=== PATIENT | female | born 1995 | race American Indian/Alaskan Native ===

== ENCOUNTER 2018-04-06 14:11 | Emergency (ER) | payer OTHER ==
--- NOTE | 2018-04-06 15:26 | Emergency Department Report ---
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 For the last few days she has mild Left earach. +nasal congestion recently, from a cold. She denies fever. She denies any trauma to the ear. She is not using any Q-tips. ED Review of Systems ROS: Stated complaint: EARACHE/HEADACHE Other details as noted in HPI Constitutional: denies: fever, malaise Eyes: denies: eye pain, eye discharge, vision change ENT: ear pain. denies: throat pain Respiratory: denies: SOB with exertion, wheezing Cardiovascular: denies: chest pain ED Past Medical Hx - Past Medical History Previous Medical History?: No - Surgical History Past Surgical History?: No - Social History Smoking Status: Never Smoker Substance Use Type: None - Medications Home Medications: Home Medications Medication Instructions Recorded Confirmed Last Taken Type Fluticasone [Flonase] 1 spray NS QDAY 14 Days #1 bottle 04/06/18 Unknown Rx Loratadine 10 mg PO DAILY 14 Days #14 capsule 04/06/18 Unknown Rx predniSONE [Prednisone] 50 mg PO DAILY 3 Days #3 tablet 04/06/18 Unknown Rx Minor Respiratory Exam - Exam General: Vital signs noted. No distress. Alert and acting appropriately. HEENT: Yes Moist Mucous Membranes, No Pharyngeal Erythema, No Pharyngeal Exudates, No Rhinorrhea, No Conjuctival Injection Ear: Left EAC Pain (serous fluid effusion), Neither TM Bulge, Neither TM Erythema Neck: Yes Supple, No Adenopathy Lungs: Yes Good Air Exchange, No Wheezes, No Ronchi, No Stridor, No Cough, No Labored Respirations, No Retractions, No Use of Accessory Muscles, No Other Abnormal Lung Sounds Heart: Yes Regular, No Murmur Abdomen: Yes Normal Bowel Sounds, No Tenderness, No Peritoneal Signs Skin: No Rash, No Edema Neurologic: Alert and oriented, no deficits. Musculoskeletal: Unremarkable. ED Course Vital Signs 04/06/18 14:16 Temperature 98.0 F Pulse Rate 86 Blood Pressure 121/79 O2 Sat by Pulse 98 Oximetry ED Medical Decision Making - Medical Decision Making Serous effusion, left ear ache, caused by eustachian tube dysfunction, recent nasal congestion and rhinorrhea. Described prednisone Flonase and loratadine. Critical care attestation.: If time is entered above; I have spent that time in minutes in the direct care of this critically ill patient, excluding procedure time. ED Disposition Clinical Impression: Left ear pain, Eustachian tube dysfunction Disposition: TO HOME OR SELFCARE Is pt being admited?: No Does the pt Need Aspirin: No Condition: Stable Instructions: Earache (ED) Prescriptions: Fluticasone [Flonase] 1 spray NS QDAY 14 Days #1 bottle Loratadine 10 mg PO DAILY 14 Days #14 capsule predniSONE [Prednisone] 50 mg PO DAILY 3 Days #3 tablet Referrals: [facility] [Outside] - 3-5 Days
== END 2018-04-06 15:36 | disposition home or self-care (01) ==
LOC: ED 14:11
DX: H69.82 Other specified disorders of Eustachian tube, left ear (principal)
CPT/HCPCS: 99282

== ENCOUNTER 2020-09-05 14:04 | Emergency (ER) | payer OTHER ==
[2020-09-05 15:24] LABS: Alanine Aminotransferase 8 units/L (7-56); Albumin 4.6 g/dL (3.9-5); Blood Urea Nitrogen 7 mg/dL (7-17); Calcium 9.3 mg/dL (8.4-10.2); Hemolysis Index 5
[2020-09-05 15:27] LABS: BUN/Creatinine Ratio 12
--- NOTE | 2020-09-05 15:33 | Emergency Department Report ---
Blank Doc - Documentation Documentation: 24-year-old female that presents with abdominal pain, nausea vomiting and head ache. Patient stated she started her menstrual cycle today. 1- This initial assessment/diagnostic orders/clinical plan/ treatment(s) is/are subject to change based on pt's health status, clinical progression and re- assessment by fellow clinical providers in the ED. Further treatment and workup at subsequent clinical provers discretion. Patient/guardians urged not to elope from ED as their condition may be serious if not clinically assessed and managed. 2-labs 3-UA
[2020-09-05 15:37] LABS: Basophils # (Auto) 0.1 K/mm3 (0.0-0.1); Basophils % (Auto) 0.8 % (0.0-1.8); Eosinophils # (Auto) 0.4 K/mm3 (0.0-0.4); Eosinophils % (Auto) 5.8 % (0.0-4.3); Hemoglobin 12.1 gm/dl (10.1-14.3); Lymphocytes # (Auto) 2.5 K/mm3 (1.2-5.4); Lymphocytes % (Auto) 36.4 % (13.4-35.0); Mean Corpuscular HGB Conc 34 % (30-34); Mean Corpuscular Volume 91 fl (79-97); Monocytes # (Auto) 0.7 K/mm3 (0.0-0.8); Monocytes % (Auto) 9.6 % (0.0-7.3); Platelet Count 202 K/mm3 (140-440); Red Blood Count 3.96 M/mm3 (3.65-5.03); Red Cell Distribution Width 14.1 % (13.2-15.2)
[2020-09-05 17:26] LABS: Bacteria,Urine 1+ /HPF (Negative); Bilirubin,Urine NEG (Negative); Blood,Urine NEG (Negative); Color,Urine Yellow (Yellow); Protein,Urine <15 mg/dL mg/dL (Negative); Urobilinogen,Urine < 2.0 mg/dL (<2.0); WBC,Urine < 1.0 /HPF (0.0-6.0)
== END 2020-09-05 19:35 | disposition left against medical advice (07) ==
LOC: ED 14:04
DX: R11.2 Nausea with vomiting, unspecified (principal); R10.9 Unspecified abdominal pain; R51.9 Headache, unspecified; Z53.21 Procedure and treatment not carried out due to patient leaving prior to being seen by health care provider
CPT/HCPCS: 36415; 80053; 81001; 83690; 84703; 85025

== ENCOUNTER 2021-05-10 10:01 | Inpatient (IN) | payer MEDICAID ==
[2021-05-10] MEDS ORDERED: ONDANSETRON 4 MG/2 ML INJ IV PRN (12:40)
[2021-05-10] MEDS ORDERED: ACETAMINOPHEN 325 MG TAB PO PRN (12:40)
[2021-05-10] MEDS ORDERED: SODIUM CHLORIDE NASAL SPRAY 44ML NS PRN (12:40)
[2021-05-10] MEDS ORDERED: diphenhydrAMINE 25 MG CAP PO PRN (12:40)
[2021-05-10] MEDS ORDERED: SIMETHICONE 80 MG CHEW TAB PO PRN (12:40)
[2021-05-10] MEDS ORDERED: DOCUSATE SODIUM 100 MG CAP PO PRN (12:40)
--- NOTE | 2021-05-10 12:48 | History and Physical Report ---
History of Present Illness Date of examination: 05/10/21 Date of admission: 05/10/21 10:14 Chief complaint: sent from [facility] office, low amniotic fluid History of present illness: Pt is a 25 year old female primigravida ED 06/07/21 at 36w0d who was sent from [facility] appt today secondary to near oligohydramnios in setting of SGA fetus. The patient denies leakage of fluid or vaginal bleeding. [facility] with comanagement by [facility] complicated by SGA fetus, glucose intolerance, and silent carrier for alpha thalassemia status. Her GBS status is unknown. Past History Past Medical History: GERD Past Surgical History: no surgical history Family/Genetic History: hypertension Social history: no significant social history - Obstetrical History Expected Date of Delivery: 06/07/21 Actual Gestation: 36 Week(s) 0 Day(s) : 1 Medications and Allergies Allergies Allergy/AdvReac Type Severity Reaction Status Date / Time coconut AdvReac Severe Hives Verified 05/10/21 11:22 Home Medications Medication Instructions Recorded Confirmed Last Taken Type Vit-Fe Fumar-FA [ 1 tab PO DAILY 05/10/21 05/10/21 05/08/21 History Vitamin] Active Meds: Active Medications Acetaminophen (Acetaminophen 325 Mg Tab) 650 mg PO Q4H PRN PRN Reason: Pain MILD(1-3)/Fever >100.5/OCLEMAN Betamethasone Acet/Betameth SodPhos (Betamet Acet/Betamet Na Ph 6 Mg/Ml Inj 5 Ml Mdv) 12 mg IM Q24HR BRITT Stop: 05/11/21 10:01 Diphenhydramine HCl (Diphenhydramine 25 Mg Cap) 25 mg PO Q6H PRN PRN Reason: Itching Docusate Sodium (Docusate Sodium 100 Mg Cap) 100 mg PO Q12H PRN PRN Reason: Constipation Lactated Ringer's (Lactated Ringers) 1,000 mls @ 150 mls/hr IV DIRECT BRITT Multivitamins/Iron/Calcium ( [id number] Fumarate-Folic Acid Vit Tab) 1 each PO QDAY BRITT Ondansetron HCl (Ondansetron 4 Mg/2 Ml Inj) 4 mg IV Q6H PRN PRN Reason: Nausea And Vomiting Simethicone (Simethicone 80 Mg Chew Tab) 80 mg PO Q6H PRN PRN Reason: Gas pain Sodium Chloride (Sodium Chloride Nasal [place] 44ml) 2 spray NS Q4H PRN PRN Reason: Congestion Review of Systems All systems: negative - Vital Signs Vital signs: Vital Signs Pulse BP 103 H 119/77 05/10/21 11:20 05/10/21 11:20 Temp Pulse Resp BP Pulse Ox 98.4 F 101 H 20 119/77 97 05/10/21 11:31 05/10/21 12:45 05/10/21 11:31 05/10/21 11:31 05/10/21 12:45 - Physical Exam Breasts: Positive: deferred Abdomen: Positive: soft (gravid ) Uterus: Positive: enlarged (gravid ) Extremities: Positive: normal - Obstetrical FHR: auscultation normal Uterine Contraction Monitor Mode: External Uterine Contraction Pattern: Absent Results Result Diagrams: 05/10/21 Unknown All other labs normal. Assessment and Plan A: IUP at 36w0d SGA fetus Borderline oligohydramnios Glucose Intolerance GBS unknown Silent Alpha Thalassemia carrier status P: Admit to antepartum service ROM plus to evaluate for PPROM Administer betamethasone course Continuous monitoring IV hydration Repeat BPP and LUKASZ tomorrow morning; if not improved proceed with delivery Continue to monitor maternal and status
[2021-05-10 13:12] LABS: Basophils % (Auto) 0.3 % (0.0-1.8); Eosinophils # (Auto) 0.1 K/mm3 (0.0-0.4); Hemoglobin 11.9 gm/dl (10.1-14.3); Lymphocytes % (Auto) 8.9 % (13.4-35.0); Mean Corpuscular HGB Conc 32 % (30-34); Mean Corpuscular Volume 90 fl (79-97); Monocytes # (Auto) 0.8 K/mm3 (0.0-0.8); Platelet Count 196 K/mm3 (140-440); Red Blood Count 4.11 M/mm3 (3.65-5.03); Red Cell Distribution Width 13.7 % (13.2-15.2)
[2021-05-10] MEDS: BETAMET ACET/BETAMET NA PH 6 MG/ML INJ 5 ML MDV IM SCH (13:22)
[2021-05-10] MEDS: LACTATED RINGERS 1,000 ML IV SCH ×2 (13:30→21:11)
[2021-05-11] MEDS: LACTATED RINGERS 1,000 ML IV SCH ×3 (01:48→14:41)
[2021-05-11] MEDS: PRENATAL VIT27-FE FUMARATE-FOLIC ACID VIT TAB PO SCH (10:03)
--- NOTE | 2021-05-11 10:47 | Ultrasound Report ---
ULTRASOUND BIOPHYSICAL PROFILE INDICATION: LUKASZ. COMPARISON: None available. FINDINGS: BREATHING MOVEMENT = 2 GROSS BODY MOVEMENT = 2 TONE = 2 QUALITATIVE AMNIOTIC FLUID VOLUME = 2 TOTAL BIOPHYSICAL SCORE = 8/8 AMNIOTIC FLUID INDEX (cm) = 7 PRESENTATION: Cephalic. HEART RATE (beats per minute): 131 IMPRESSION: 1. biophysical profile = 10/31 2. Oligohydramnios Signer Name: Cheo Perez MD Signed: 05/11/2021 10:43 AM Workstation Name: [id number]
[2021-05-11] MEDS ORDERED: OXYTOCIN 10 UNIT/1 ML INJ IM PRN (13:13)
[2021-05-11] MEDS ORDERED: CARBOPROST TROMETHAMINE 250 MCG/1 ML INJ IM PRN (13:13)
[2021-05-11] MEDS ORDERED: DINOPROSTONE 10 MG VAG SUPP VG SCH (13:13)
[2021-05-11] MEDS ORDERED: ePHEDrine SULFATE 50 MG/1 ML INJ IV PRN (13:13)
[2021-05-11] MEDS ORDERED: BUTORPHANOL 2 MG/1 ML INJ IV PRN (13:13)
[2021-05-11] MEDS ORDERED: miSOPROStol 200 MCG TAB PR PRN (13:13)
[2021-05-11] MEDS ORDERED: NalbUPHINE 10 MG/1 ML INJ IV PRN (13:13)
[2021-05-11] MEDS ORDERED: METHYLERGONOVINE MALEATE 0.2 MG/ML VIAL IM PRN (13:13)
[2021-05-11] MEDS ORDERED: TERBUTALINE 1 MG/1 ML INJ SUB-Q PRN (13:13)
[2021-05-11] MEDS ORDERED: MINERAL OIL 30 ML ORAL LIQD PO PRN (13:13)
[2021-05-11] MEDS ORDERED: LOPERAMIDE 2 MG CAP PO PRN (13:13)
[2021-05-11] MEDS: BETAMET ACET/BETAMET NA PH 6 MG/ML INJ 5 ML MDV IM SCH (13:38)
[2021-05-11] MEDS ORDERED: OXYTOCIN DRIP 30 UNITS/500 ML BAG IV SCH (14:00)
[2021-05-11] MEDS ORDERED: AMPICILLIN/NS 2 GM/100 ML 2 GM/100 ML BAG IV ONE (14:00)
[2021-05-11] MEDS ORDERED: LIDOCAINE (2%) 20 MG/1 ML VIAL 20 ML MDV INFILTRATI ONE (14:13)
[2021-05-11 18:32] LABS: Hematocrit 34.6 % (30.3-42.9); Hemoglobin 10.9 gm/dl (10.1-14.3); Mean Corpuscular HGB Conc 32 % (30-34); Mean Corpuscular Volume 91 fl (79-97); Platelet Count 182 K/mm3 (140-440); Red Cell Distribution Width 13.5 % (13.2-15.2)
--- NOTE | 2021-05-12 09:02 | Progress Note ---
Assessment and Plan - Patient Problems (1) Oligohydramnios in third trimester Current Visit: Yes Status: Acute Qualifiers: Fetus number: single or unspecified fetus Qualified Code(s): O41.03X0 - Oligohydramnios, third trimester, not applicable or unspecified Plan to address problem: Cytotec 50 mg po q 4hrs x 4 doses as tolerated Pain meds as desired per orders Continue to monitory maternal/ wellbeing closely Subjective - Subjective Date of service: 05/12/21 Principal diagnosis: IOL; oligo Interval history: Pt is a 25 year old female primigravida ED 06/07/21 at 36w0d who was sent from [facility] appt today secondary to near oligohydramnios in setting of SGA fetus. The patient denies leakage of fluid or vaginal bleeding. She has had care at [facility] with comanagement by [facility] complicated by SGA fetus, glucose intolerance, and silent carrier for alpha thalassemia status. Her GBS status is unknown. Patient reports: movement normal, no new complaints, no loss of fluid, no vaginal bleeding, no contractions Objective - Vital Signs Vital Signs: Vital Signs - 12hr 05/11/21 05/11/21 05/11/21 21:03 21:12 21:24 Temperature Pulse Rate 128 H 130 H 63 Blood Pressure O2 Sat by Pulse 0 L 73 L 72 L Oximetry O2 Sat by Pulse Oximetry [ Bilateral] 05/11/21 05/11/21 05/11/21 21:25 21:28 21:30 Temperature Pulse Rate 91 H 96 H 97 H Blood Pressure 122/74 O2 Sat by Pulse 99 98 Oximetry O2 Sat by Pulse Oximetry [ Bilateral] 05/11/21 05/11/21 05/11/21 21:35 21:40 21:45 Temperature Pulse Rate 95 H 104 H 94 H Blood Pressure O2 Sat by Pulse 100 99 100 Oximetry O2 Sat by Pulse Oximetry [ Bilateral] 05/11/21 05/11/21 05/11/21 21:50 21:55 22:00 Temperature Pulse Rate 101 H 93 H 94 H Blood Pressure O2 Sat by Pulse 99 100 98 Oximetry O2 Sat by Pulse Oximetry [ Bilateral] 05/11/21 05/11/21 05/11/21 22:05 22:10 22:15 Temperature Pulse Rate 95 H 98 H 90 Blood Pressure O2 Sat by Pulse 98 99 99 Oximetry O2 Sat by Pulse Oximetry [ Bilateral] 05/11/21 05/11/21 05/11/21 22:20 22:25 22:30 Temperature Pulse Rate 103 H 92 H 104 H Blood Pressure O2 Sat by Pulse 97 99 98 Oximetry O2 Sat by Pulse Oximetry [ Bilateral] 05/11/21 05/11/21 05/11/21 22:35 22:40 22:45 Temperature Pulse Rate 100 H 109 H 88 Blood Pressure O2 Sat by Pulse 98 98 100 Oximetry O2 Sat by Pulse Oximetry [ Bilateral] 05/11/21 05/11/21 05/11/21 22:50 22:55 23:00 Temperature Pulse Rate 96 H 93 H 101 H Blood Pressure O2 Sat by Pulse 99 98 98 Oximetry O2 Sat by Pulse Oximetry [ Bilateral] 05/11/21 05/11/21 05/11/21 23:05 23:10 23:15 Temperature Pulse Rate 102 H 100 H 101 H Blood Pressure O2 Sat by Pulse 99 98 98 Oximetry O2 Sat by Pulse Oximetry [ Bilateral] 05/11/21 05/11/21 05/11/21 23:20 23:25 23:30 Temperature Pulse Rate 103 H 103 H 99 H Blood Pressure O2 Sat by Pulse 99 99 99 Oximetry O2 Sat by Pulse Oximetry [ Bilateral] 05/11/21 05/11/21 05/11/21 23:35 23:40 23:45 Temperature Pulse Rate 98 H 101 H 104 H Blood Pressure O2 Sat by Pulse 99 98 99 Oximetry O2 Sat by Pulse Oximetry [ Bilateral] 05/11/21 05/11/21 05/12/21 23:50 23:55 00:00 Temperature Pulse Rate 100 H 101 H 116 H Blood Pressure O2 Sat by Pulse 98 98 98 Oximetry O2 Sat by Pulse Oximetry [ Bilateral] 05/12/21 05/12/21 05/12/21 00:05 00:06 00:10 Temperature 98.3 F Pulse Rate 96 H 92 H Blood Pressure O2 Sat by Pulse 99 98 Oximetry O2 Sat by Pulse Oximetry [ Bilateral] 05/12/21 05/12/21 05/12/21 00:15 00:20 00:29 Temperature Pulse Rate 78 89 75 Blood Pressure O2 Sat by Pulse 98 98 61 L Oximetry O2 Sat by Pulse Oximetry [ Bilateral] 05/12/21 05/12/21 05/12/21 00:34 00:39 00:44 Temperature Pulse Rate 100 H 95 H 97 H Blood Pressure O2 Sat by Pulse 99 99 99 Oximetry O2 Sat by Pulse Oximetry [ Bilateral] 05/12/21 05/12/21 05/12/21 00:49 00:54 00:59 Temperature Pulse Rate 102 H 100 H 98 H Blood Pressure O2 Sat by Pulse 100 99 99 Oximetry O2 Sat by Pulse Oximetry [ Bilateral] 05/12/21 05/12/21 05/12/21 01:04 01:09 01:14 Temperature Pulse Rate 101 H 94 H 101 H Blood Pressure O2 Sat by Pulse 99 99 98 Oximetry O2 Sat by Pulse Oximetry [ Bilateral] 05/12/21 05/12/21 05/12/21 01:19 01:24 01:29 Temperature Pulse Rate 98 H 103 H 102 H Blood Pressure O2 Sat by Pulse 99 99 99 Oximetry O2 Sat by Pulse Oximetry [ Bilateral] 05/12/21 05/12/21 05/12/21 01:34 01:39 01:44 Temperature Pulse Rate 99 H 96 H 101 H Blood Pressure O2 Sat by Pulse 98 99 98 Oximetry O2 Sat by Pulse Oximetry [ Bilateral] 05/12/21 05/12/21 05/12/21 01:49 01:54 01:59 Temperature Pulse Rate 103 H 114 H 102 H Blood Pressure O2 Sat by Pulse 98 100 99 Oximetry O2 Sat by Pulse Oximetry [ Bilateral] 05/12/21 05/12/21 05/12/21 02:04 02:09 02:14 Temperature Pulse Rate 102 H 96 H 102 H Blood Pressure O2 Sat by Pulse 99 98 98 Oximetry O2 Sat by Pulse Oximetry [ Bilateral] 05/12/21 05/12/21 05/12/21 02:19 02:24 02:29 Temperature Pulse Rate 102 H 101 H 101 H Blood Pressure O2 Sat by Pulse 99 99 99 Oximetry O2 Sat by Pulse Oximetry [ Bilateral] 05/12/21 05/12/21 05/12/21 02:34 02:39 02:44 Temperature Pulse Rate 102 H 101 H 94 H Blood Pressure O2 Sat by Pulse 99 99 99 Oximetry O2 Sat by Pulse Oximetry [ Bilateral] 05/12/21 05/12/21 05/12/21 02:49 02:54 02:59 Temperature Pulse Rate 88 99 H 100 H Blood Pressure O2 Sat by Pulse 98 98 99 Oximetry O2 Sat by Pulse Oximetry [ Bilateral] 05/12/21 05/12/21 05/12/21 03:04 03:09 03:14 Temperature Pulse Rate 101 H 89 97 H Blood Pressure O2 Sat by Pulse 97 98 98 Oximetry O2 Sat by Pulse Oximetry [ Bilateral] 05/12/21 05/12/21 05/12/21 03:19 03:24 03:29 Temperature Pulse Rate 100 H 88 92 H Blood Pressure O2 Sat by Pulse 98 98 98 Oximetry O2 Sat by Pulse Oximetry [ Bilateral] 05/12/21 05/12/21 05/12/21 03:34 03:39 03:44 Temperature Pulse Rate 83 99 H 95 H Blood Pressure O2 Sat by Pulse 99 98 99 Oximetry O2 Sat by Pulse Oximetry [ Bilateral] 05/12/21 05/12/21 05/12/21 03:49 03:53 03:54 Temperature 98.2 F Pulse Rate 91 H 94 H Blood Pressure O2 Sat by Pulse 98 98 Oximetry O2 Sat by Pulse Oximetry [ Bilateral] 05/12/21 05/12/21 05/12/21 03:59 04:04 04:09 Temperature Pulse Rate 103 H 104 H 92 H Blood Pressure O2 Sat by Pulse 98 98 98 Oximetry O2 Sat by Pulse Oximetry [ Bilateral] 05/12/21 05/12/21 05/12/21 04:14 04:19 04:24 Temperature Pulse Rate 87 101 H 97 H Blood Pressure O2 Sat by Pulse 98 98 98 Oximetry O2 Sat by Pulse Oximetry [ Bilateral] 05/12/21 05/12/21 05/12/21 04:29 04:34 04:39 Temperature Pulse Rate 96 H 89 94 H Blood Pressure O2 Sat by Pulse 98 98 98 Oximetry O2 Sat by Pulse Oximetry [ Bilateral] 05/12/21 05/12/21 05/12/21 04:44 04:49 04:54 Temperature Pulse Rate 95 H 91 H 99 H Blood Pressure O2 Sat by Pulse 98 98 98 Oximetry O2 Sat by Pulse Oximetry [ Bilateral] 05/12/21 05/12/21 05/12/21 04:59 05:04 05:09 Temperature Pulse Rate 87 95 H 81 Blood Pressure O2 Sat by Pulse 98 98 98 Oximetry O2 Sat by Pulse Oximetry [ Bilateral] 05/12/21 05/12/21 05/12/21 05:14 05:19 05:24 Temperature Pulse Rate 87 88 90 Blood Pressure O2 Sat by Pulse 99 99 99 Oximetry O2 Sat by Pulse Oximetry [ Bilateral] 05/12/21 05/12/21 05/12/21 05:29 05:34 05:39 Temperature Pulse Rate 97 H 96 H 100 H Blood Pressure O2 Sat by Pulse 99 99 100 Oximetry O2 Sat by Pulse Oximetry [ Bilateral] 05/12/21 05/12/21 05/12/21 05:44 05:49 05:57 Temperature Pulse Rate 96 H 104 H 116 H Blood Pressure O2 Sat by Pulse 100 99 100 Oximetry O2 Sat by Pulse Oximetry [ Bilateral] 05/12/21 05/12/21 05/12/21 06:02 06:07 06:12 Temperature Pulse Rate 94 H 103 H 100 H Blood Pressure O2 Sat by Pulse 100 99 99 Oximetry O2 Sat by Pulse Oximetry [ Bilateral] 05/12/21 05/12/21 05/12/21 06:17 08:06 08:08 Temperature 98.3 F Pulse Rate 96 H 60 Blood Pressure 122/60 O2 Sat by Pulse 100 88 Oximetry O2 Sat by Pulse Oximetry [ Bilateral] 05/12/21 05/12/21 05/12/21 08:09 08:11 08:16 Temperature Pulse Rate 93 H 96 H Blood Pressure O2 Sat by Pulse 98 98 Oximetry O2 Sat by Pulse 99 Oximetry [ Bilateral] 05/12/21 05/12/21 05/12/21 08:21 08:26 08:31 Temperature Pulse Rate 102 H 97 H 93 H Blood Pressure O2 Sat by Pulse 97 98 98 Oximetry O2 Sat by Pulse Oximetry [ Bilateral] 05/12/21 05/12/21 05/12/21 08:36 08:41 08:46 Temperature Pulse Rate 92 H 111 H 89 Blood Pressure O2 Sat by Pulse 98 99 98 Oximetry O2 Sat by Pulse Oximetry [ Bilateral] 05/12/21 05/12/21 08:51 08:56 Temperature Pulse Rate 95 H 89 Blood Pressure O2 Sat by Pulse 97 97 Oximetry O2 Sat by Pulse Oximetry [ Bilateral] - Exam Breasts: deferred Cardiovascular: Regular rate Lungs: Normal air movement FHR: category 1 Uterine Contraction Monitor Mode: External Cervical Dilatation: 1 (vertex) Cervical Effacement Percentage: 50 station: -3 Uterine Contraction Pattern: Irregular Uterine Tone Measurement Phase: Resting Extremities: normal Deep Tendon Reflex Grade: Normal +2 - Labs Labs: Abnormal Labs 05/10/21 05/11/21 Unknown 18:16 WBC 19.1 H Lymph % (Auto) 8.9 L Lymph # (Auto) 1.0 L Seg Neutrophils % 82.8 H Seg Neutrophils # 9.1 H Laboratory Results - last 24 hr 05/11/21 05/11/21 09:35 18:16 WBC 19.1 H RBC 3.80 Hgb 10.9 Hct 34.6 MCV 91 MCH 29 MCHC 32 RDW 13.5 Plt Count 182 SARS-CoV-2 (PCR) Negative
[2021-05-12] MEDS: PRENATAL VIT27-FE FUMARATE-FOLIC ACID VIT TAB PO SCH (09:43)
[2021-05-12] MEDS ORDERED: miSOPROStol 25 MCG TAB PO SCH (10:00)
[2021-05-12] MEDS: LACTATED RINGERS 1,000 ML IV SCH ×3 (10:20→18:52)
[2021-05-12] MEDS ORDERED: OXYTOCIN DRIP 30,000 MILLIUNITS/500 ML BAG IV ONE (14:39)
--- NOTE | 2021-05-12 15:44 | Event Note ---
Date: 05/12/21 Received call from RN stating that pt was ctxing to frequently to give next dose of cytotec. Reports cervical exam is now: /3. Orders given to resume Pitocin @ 2 mu/min with a max of 6mu. Will continue to closely monitor maternal/ wellbeing.
[2021-05-13] MEDS ORDERED: ZOLPIDEM 5 MG TAB PO ONE (01:48)
--- NOTE | 2021-05-13 03:40 | Event Note ---
Date: 05/13/21 Pt resting quietly. Low-dose Pitocin continues, currently at 6mu/min. Category 1 tracing, irregular ctxs. No concerns offered.
[2021-05-13] MEDS: fentaNYL 100 MCG/2 ML INJ IV PRN (06:30)
--- NOTE | 2021-05-13 13:56 | Progress Note ---
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 Reported spotting overnight, but otherwise no complaints. Patient reports: movement normal, no new complaints Objective - Vital Signs Vital Signs: Vital Signs - 12hr 05/13/21 05/13/21 05/13/21 02:01 02:06 02:11 Temperature Pulse Rate 98 H 117 H 91 H Respiratory Rate Blood Pressure Blood Pressure [Left] O2 Sat by Pulse 99 99 100 Oximetry O2 Sat by Pulse Oximetry [ Bilateral] 05/13/21 05/13/21 05/13/21 02:16 02:21 02:26 Temperature Pulse Rate 75 75 74 Respiratory Rate Blood Pressure Blood Pressure [Left] O2 Sat by Pulse 99 99 98 Oximetry O2 Sat by Pulse Oximetry [ Bilateral] 05/13/21 05/13/21 05/13/21 02:31 02:36 02:41 Temperature Pulse Rate 73 74 74 Respiratory Rate Blood Pressure Blood Pressure [Left] O2 Sat by Pulse 99 97 98 Oximetry O2 Sat by Pulse Oximetry [ Bilateral] 05/13/21 05/13/21 05/13/21 02:46 02:51 02:56 Temperature Pulse Rate 76 83 75 Respiratory Rate Blood Pressure Blood Pressure [Left] O2 Sat by Pulse 96 97 97 Oximetry O2 Sat by Pulse Oximetry [ Bilateral] 05/13/21 05/13/21 05/13/21 03:01 03:06 03:11 Temperature Pulse Rate 74 84 88 Respiratory Rate Blood Pressure Blood Pressure [Left] O2 Sat by Pulse 98 98 99 Oximetry O2 Sat by Pulse Oximetry [ Bilateral] 05/13/21 05/13/21 05/13/21 03:16 03:21 03:26 Temperature Pulse Rate 72 74 71 Respiratory Rate Blood Pressure Blood Pressure [Left] O2 Sat by Pulse 97 96 96 Oximetry O2 Sat by Pulse Oximetry [ Bilateral] 05/13/21 05/13/21 05/13/21 03:31 03:39 03:41 Temperature 98.3 F Pulse Rate 78 49 L Respiratory 18 Rate Blood Pressure Blood Pressure [Left] O2 Sat by Pulse 97 96 Oximetry O2 Sat by Pulse Oximetry [ Bilateral] 05/13/21 05/13/21 05/13/21 03:43 03:46 03:51 Temperature Pulse Rate 71 69 69 Respiratory Rate Blood Pressure 116/69 Blood Pressure [Left] O2 Sat by Pulse 99 98 Oximetry O2 Sat by Pulse Oximetry [ Bilateral] 05/13/21 05/13/21 05/13/21 03:56 04:01 04:06 Temperature Pulse Rate 75 71 71 Respiratory Rate Blood Pressure Blood Pressure [Left] O2 Sat by Pulse 97 98 98 Oximetry O2 Sat by Pulse Oximetry [ Bilateral] 05/13/21 05/13/21 05/13/21 04:11 04:16 04:21 Temperature Pulse Rate 72 72 72 Respiratory Rate Blood Pressure Blood Pressure [Left] O2 Sat by Pulse 97 97 97 Oximetry O2 Sat by Pulse Oximetry [ Bilateral] 05/13/21 05/13/21 05/13/21 04:26 04:31 04:36 Temperature Pulse Rate 75 73 75 Respiratory Rate Blood Pressure Blood Pressure [Left] O2 Sat by Pulse 97 96 97 Oximetry O2 Sat by Pulse Oximetry [ Bilateral] 05/13/21 05/13/21 05/13/21 04:41 04:46 04:51 Temperature Pulse Rate 79 78 81 Respiratory Rate Blood Pressure Blood Pressure [Left] O2 Sat by Pulse 96 99 99 Oximetry O2 Sat by Pulse Oximetry [ Bilateral] 05/13/21 05/13/21 05/13/21 04:56 05:01 05:06 Temperature Pulse Rate 81 83 75 Respiratory Rate Blood Pressure Blood Pressure [Left] O2 Sat by Pulse 100 100 100 Oximetry O2 Sat by Pulse Oximetry [ Bilateral] 05/13/21 05/13/21 05/13/21 05:11 05:16 05:21 Temperature Pulse Rate 81 88 74 Respiratory Rate Blood Pressure Blood Pressure [Left] O2 Sat by Pulse 96 99 98 Oximetry O2 Sat by Pulse Oximetry [ Bilateral] 05/13/21 05/13/21 05/13/21 05:26 05:31 05:36 Temperature Pulse Rate 77 70 76 Respiratory Rate Blood Pressure Blood Pressure [Left] O2 Sat by Pulse 99 98 97 Oximetry O2 Sat by Pulse Oximetry [ Bilateral] 05/13/21 05/13/21 05/13/21 05:41 05:46 05:51 Temperature Pulse Rate 71 84 72 Respiratory Rate Blood Pressure Blood Pressure [Left] O2 Sat by Pulse 97 97 98 Oximetry O2 Sat by Pulse Oximetry [ Bilateral] 05/13/21 05/13/21 05/13/21 05:56 06:01 06:06 Temperature Pulse Rate 85 76 70 Respiratory Rate Blood Pressure Blood Pressure [Left] O2 Sat by Pulse 98 97 99 Oximetry O2 Sat by Pulse Oximetry [ Bilateral] 05/13/21 05/13/21 05/13/21 06:11 06:16 06:21 Temperature Pulse Rate 69 75 71 Respiratory Rate Blood Pressure Blood Pressure [Left] O2 Sat by Pulse 100 96 99 Oximetry O2 Sat by Pulse Oximetry [ Bilateral] 05/13/21 05/13/21 05/13/21 06:29 06:34 06:39 Temperature Pulse Rate 50 L 93 H 96 H Respiratory Rate Blood Pressure Blood Pressure [Left] O2 Sat by Pulse 90 99 99 Oximetry O2 Sat by Pulse Oximetry [ Bilateral] 05/13/21 05/13/21 05/13/21 06:44 06:49 06:54 Temperature Pulse Rate 88 105 H 96 H Respiratory Rate Blood Pressure Blood Pressure [Left] O2 Sat by Pulse 97 100 98 Oximetry O2 Sat by Pulse Oximetry [ Bilateral] 05/13/21 05/13/21 05/13/21 06:59 07:04 07:09 Temperature Pulse Rate 92 H 97 H 83 Respiratory Rate Blood Pressure Blood Pressure [Left] O2 Sat by Pulse 98 99 98 Oximetry O2 Sat by Pulse Oximetry [ Bilateral] 05/13/21 05/13/21 05/13/21 07:14 07:19 07:24 Temperature Pulse Rate 82 79 79 Respiratory Rate Blood Pressure Blood Pressure [Left] O2 Sat by Pulse 97 98 97 Oximetry O2 Sat by Pulse Oximetry [ Bilateral] 05/13/21 05/13/21 05/13/21 07:29 07:30 07:34 Temperature 98.5 F Pulse Rate 79 74 84 Respiratory 16 Rate Blood Pressure Blood Pressure 123/82 [Left] O2 Sat by Pulse 97 99 97 Oximetry O2 Sat by Pulse 98 Oximetry [ Bilateral] 05/13/21 05/13/21 05/13/21 07:39 07:44 07:49 Temperature Pulse Rate 80 78 96 H Respiratory Rate Blood Pressure Blood Pressure [Left] O2 Sat by Pulse 97 97 100 Oximetry O2 Sat by Pulse Oximetry [ Bilateral] 05/13/21 05/13/21 05/13/21 07:54 07:59 08:04 Temperature Pulse Rate 72 80 77 Respiratory Rate Blood Pressure Blood Pressure [Left] O2 Sat by Pulse 99 98 99 Oximetry O2 Sat by Pulse Oximetry [ Bilateral] 05/13/21 05/13/21 05/13/21 08:08 08:09 08:10 Temperature Pulse Rate 69 78 74 Respiratory Rate Blood Pressure 123/82 Blood Pressure [Left] O2 Sat by Pulse 92 97 Oximetry O2 Sat by Pulse Oximetry [ Bilateral] 05/13/21 05/13/21 05/13/21 08:14 08:19 08:24 Temperature Pulse Rate 77 78 81 Respiratory Rate Blood Pressure Blood Pressure [Left] O2 Sat by Pulse 99 96 96 Oximetry O2 Sat by Pulse Oximetry [ Bilateral] 05/13/21 05/13/21 05/13/21 08:29 08:34 08:38 Temperature Pulse Rate 86 82 103 H Respiratory Rate Blood Pressure Blood Pressure [Left] O2 Sat by Pulse 96 98 93 Oximetry O2 Sat by Pulse Oximetry [ Bilateral] 05/13/21 05/13/21 05/13/21 08:39 08:44 08:49 Temperature Pulse Rate 88 89 89 Respiratory Rate Blood Pressure Blood Pressure [Left] O2 Sat by Pulse 96 97 96 Oximetry O2 Sat by Pulse Oximetry [ Bilateral] 05/13/21 05/13/21 05/13/21 08:54 08:59 09:04 Temperature Pulse Rate 86 87 87 Respiratory Rate Blood Pressure Blood Pressure [Left] O2 Sat by Pulse 97 97 98 Oximetry O2 Sat by Pulse Oximetry [ Bilateral] 05/13/21 05/13/21 05/13/21 09:09 09:14 09:18 Temperature Pulse Rate 87 91 H 70 Respiratory Rate Blood Pressure Blood Pressure [Left] O2 Sat by Pulse 98 99 93 Oximetry O2 Sat by Pulse Oximetry [ Bilateral] 05/13/21 05/13/21 05/13/21 09:19 09:24 09:29 Temperature Pulse Rate 95 H 106 H 90 Respiratory Rate Blood Pressure Blood Pressure [Left] O2 Sat by Pulse 97 96 97 Oximetry O2 Sat by Pulse Oximetry [ Bilateral] 05/13/21 05/13/21 05/13/21 09:30 09:34 09:39 Temperature Pulse Rate 70 96 H 102 H Respiratory Rate Blood Pressure Blood Pressure [Left] O2 Sat by Pulse 93 98 98 Oximetry O2 Sat by Pulse Oximetry [ Bilateral] 05/13/21 05/13/21 05/13/21 09:44 09:49 09:54 Temperature Pulse Rate 105 H 111 H 93 H Respiratory Rate Blood Pressure Blood Pressure [Left] O2 Sat by Pulse 97 97 97 Oximetry O2 Sat by Pulse Oximetry [ Bilateral] 05/13/21 05/13/21 05/13/21 09:56 09:59 10:04 Temperature Pulse Rate 63 106 H 109 H Respiratory Rate Blood Pressure Blood Pressure [Left] O2 Sat by Pulse 87 98 100 Oximetry O2 Sat by Pulse Oximetry [ Bilateral] 05/13/21 05/13/21 05/13/21 10:09 10:58 10:59 Temperature Pulse Rate 97 H 105 H Respiratory Rate Blood Pressure 117/69 Blood Pressure [Left] O2 Sat by Pulse 99 100 Oximetry O2 Sat by Pulse Oximetry [ Bilateral] 05/13/21 05/13/21 05/13/21 11:00 11:03 11:08 Temperature 98.1 F Pulse Rate 102 H 100 H 104 H Respiratory 18 Rate Blood Pressure Blood Pressure 117/69 [Left] O2 Sat by Pulse 99 98 98 Oximetry O2 Sat by Pulse Oximetry [ Bilateral] 05/13/21 05/13/21 05/13/21 11:13 11:18 11:23 Temperature Pulse Rate 100 H 104 H 104 H Respiratory Rate Blood Pressure Blood Pressure [Left] O2 Sat by Pulse 97 99 99 Oximetry O2 Sat by Pulse Oximetry [ Bilateral] 05/13/21 05/13/21 05/13/21 11:28 11:33 11:38 Temperature Pulse Rate 105 H 107 H Respiratory Rate Blood Pressure Blood Pressure [Left] O2 Sat by Pulse 99 98 92 Oximetry O2 Sat by Pulse Oximetry [ Bilateral] 05/13/21 05/13/21 05/13/21 11:39 11:43 11:45 Temperature Pulse Rate 107 H 99 H 102 H Respiratory Rate Blood Pressure Blood Pressure [Left] O2 Sat by Pulse 90 98 94 Oximetry O2 Sat by Pulse Oximetry [ Bilateral] 05/13/21 05/13/21 05/13/21 11:48 11:52 11:53 Temperature Pulse Rate 118 H 106 H 108 H Respiratory Rate Blood Pressure Blood Pressure [Left] O2 Sat by Pulse 100 94 97 Oximetry O2 Sat by Pulse Oximetry [ Bilateral] 05/13/21 05/13/21 05/13/21 11:57 11:58 12:03 Temperature Pulse Rate 93 H 103 H 113 H Respiratory Rate Blood Pressure Blood Pressure [Left] O2 Sat by Pulse 87 98 99 Oximetry O2 Sat by Pulse Oximetry [ Bilateral] 05/13/21 05/13/21 05/13/21 12:05 12:08 12:12 Temperature Pulse Rate 112 H 113 H 116 H Respiratory Rate Blood Pressure Blood Pressure [Left] O2 Sat by Pulse 82 L 100 88 Oximetry O2 Sat by Pulse Oximetry [ Bilateral] 05/13/21 05/13/21 05/13/21 12:13 12:17 12:18 Temperature Pulse Rate 94 H 90 93 H Respiratory Rate Blood Pressure 114/70 Blood Pressure [Left] O2 Sat by Pulse 99 98 Oximetry O2 Sat by Pulse Oximetry [ Bilateral] 05/13/21 05/13/21 05/13/21 12:23 12:28 12:33 Temperature Pulse Rate 98 H 99 H 92 H Respiratory Rate Blood Pressure Blood Pressure [Left] O2 Sat by Pulse 98 98 98 Oximetry O2 Sat by Pulse Oximetry [ Bilateral] 05/13/21 05/13/21 05/13/21 12:38 12:43 12:48 Temperature Pulse Rate 95 H 97 H 91 H Respiratory Rate Blood Pressure Blood Pressure [Left] O2 Sat by Pulse 99 97 98 Oximetry O2 Sat by Pulse Oximetry [ Bilateral] 05/13/21 05/13/21 05/13/21 12:53 12:56 12:58 Temperature Pulse Rate 95 H 93 H 94 H Respiratory Rate Blood Pressure 115/68 Blood Pressure [Left] O2 Sat by Pulse 98 98 Oximetry O2 Sat by Pulse Oximetry [ Bilateral] 05/13/21 05/13/21 05/13/21 13:03 13:08 13:13 Temperature Pulse Rate 95 H 94 H 94 H Respiratory Rate Blood Pressure Blood Pressure [Left] O2 Sat by Pulse 99 97 98 Oximetry O2 Sat by Pulse Oximetry [ Bilateral] 05/13/21 05/13/21 05/13/21 13:18 13:19 13:23 Temperature Pulse Rate 90 95 H 90 Respiratory Rate Blood Pressure 126/64 Blood Pressure [Left] O2 Sat by Pulse 97 99 Oximetry O2 Sat by Pulse Oximetry [ Bilateral] 05/13/21 05/13/21 05/13/21 13:28 13:33 13:38 Temperature Pulse Rate 91 H 88 88 Respiratory Rate Blood Pressure Blood Pressure [Left] O2 Sat by Pulse 97 98 98 Oximetry O2 Sat by Pulse Oximetry [ Bilateral] 05/13/21 05/13/21 05/13/21 13:43 13:48 13:53 Temperature Pulse Rate 88 87 89 Respiratory Rate Blood Pressure 128/71 Blood Pressure [Left] O2 Sat by Pulse 99 99 99 Oximetry O2 Sat by Pulse Oximetry [ Bilateral] - Exam Breasts: deferred Abdomen: Present: soft (gravid, obese ) Uterus: Present: normal (gravid) FHR: category 2 Uterine Contraction Monitor Mode: External Cervical Dilatation: 1 (firm ) Cervical Effacement Percentage: 50 station: -3 Uterine Contraction Pattern: Irregular Uterine Tone Measurement Phase: Resting Uterine Contraction Intensity: Mild Extremities: normal - Labs Labs: Abnormal Labs 05/10/21 05/11/21 Unknown 18:16 WBC 19.1 H Lymph % (Auto) 8.9 L Lymph # (Auto) 1.0 L Seg Neutrophils % 82.8 H Seg Neutrophils # 9.1 H
[2021-05-14] MEDS: LACTATED RINGERS 1,000 ML IV SCH ×3 (02:59→16:04)
[2021-05-14] MEDS: AMPICILLIN/NS 1 GM/50 ML 1 GM/50 ML BAG IV SCH ×9 (10:26→22:50)
[2021-05-14] MEDS: PRENATAL VIT27-FE FUMARATE-FOLIC ACID VIT TAB PO SCH ×2 (10:37→11:15)
--- NOTE | 2021-05-14 13:55 | Progress Note ---
Assessment and Plan Hospital day 5 induction day for for this 36-week gestational age patient with IUGR and oligohydramnios. Patient's induction process as well as an aggressive however patient is willing to continue process secondary to desire to have a vaginal delivery. We will allow patient to eat and shower on this morning and then resume induction later on today. Anticipate . Subjective - Subjective Date of service: 05/14/21 Principal diagnosis: IOL; oligo, SGA fetus Interval history: Patient had been on a combination of low-dose Pitocin and Cervidil for the past 4 days. Patient also had minimal episodes of decreased variability and heart tones. Spoke with patient this morning regarding continuous of induction with more aggressive measures versus section. Patient has decided to continue induction process. Patient reports: movement normal, no new complaints Objective - Vital Signs Vital Signs: Vital Signs - 12hr 05/14/21 05/14/21 05/14/21 01:54 01:59 02:04 Temperature Pulse Rate 87 83 87 Respiratory Rate Blood Pressure Blood Pressure [Left] O2 Sat by Pulse 97 98 98 Oximetry O2 Sat by Pulse Oximetry [ Bilateral] 05/14/21 05/14/21 05/14/21 02:09 02:14 02:19 Temperature Pulse Rate 77 78 77 Respiratory Rate Blood Pressure Blood Pressure [Left] O2 Sat by Pulse 99 97 97 Oximetry O2 Sat by Pulse Oximetry [ Bilateral] 05/14/21 05/14/21 05/14/21 02:24 02:29 02:34 Temperature Pulse Rate 76 77 79 Respiratory Rate Blood Pressure Blood Pressure [Left] O2 Sat by Pulse 97 97 97 Oximetry O2 Sat by Pulse Oximetry [ Bilateral] 05/14/21 05/14/21 05/14/21 02:39 02:44 02:49 Temperature Pulse Rate 75 78 76 Respiratory Rate Blood Pressure Blood Pressure [Left] O2 Sat by Pulse 98 97 97 Oximetry O2 Sat by Pulse Oximetry [ Bilateral] 05/14/21 05/14/21 05/14/21 02:54 02:59 03:04 Temperature Pulse Rate 73 76 78 Respiratory Rate Blood Pressure Blood Pressure [Left] O2 Sat by Pulse 98 97 97 Oximetry O2 Sat by Pulse Oximetry [ Bilateral] 05/14/21 05/14/21 05/14/21 03:09 03:14 03:19 Temperature Pulse Rate 87 98 H 84 Respiratory Rate Blood Pressure Blood Pressure [Left] O2 Sat by Pulse 98 99 97 Oximetry O2 Sat by Pulse Oximetry [ Bilateral] 05/14/21 05/14/21 05/14/21 03:24 03:29 03:34 Temperature Pulse Rate 85 73 75 Respiratory Rate Blood Pressure Blood Pressure [Left] O2 Sat by Pulse 98 100 100 Oximetry O2 Sat by Pulse Oximetry [ Bilateral] 05/14/21 05/14/21 05/14/21 03:39 03:44 03:46 Temperature Pulse Rate 76 90 81 Respiratory Rate Blood Pressure 115/72 Blood Pressure [Left] O2 Sat by Pulse 100 100 Oximetry O2 Sat by Pulse Oximetry [ Bilateral] 05/14/21 05/14/21 05/14/21 03:48 03:49 03:53 Temperature 97.9 F Pulse Rate 75 79 Respiratory 16 Rate Blood Pressure Blood Pressure [Left] O2 Sat by Pulse 98 97 Oximetry O2 Sat by Pulse Oximetry [ Bilateral] 05/14/21 05/14/21 05/14/21 03:59 04:04 04:09 Temperature Pulse Rate 75 83 85 Respiratory Rate Blood Pressure Blood Pressure [Left] O2 Sat by Pulse 97 97 97 Oximetry O2 Sat by Pulse Oximetry [ Bilateral] 05/14/21 05/14/21 05/14/21 04:14 04:19 04:24 Temperature Pulse Rate 85 84 80 Respiratory Rate Blood Pressure Blood Pressure [Left] O2 Sat by Pulse 97 96 97 Oximetry O2 Sat by Pulse Oximetry [ Bilateral] 05/14/21 05/14/21 05/14/21 04:29 04:34 04:35 Temperature Pulse Rate 84 84 89 Respiratory Rate Blood Pressure Blood Pressure [Left] O2 Sat by Pulse 97 97 94 Oximetry O2 Sat by Pulse Oximetry [ Bilateral] 05/14/21 05/14/21 05/14/21 04:39 04:44 04:49 Temperature Pulse Rate 86 87 94 H Respiratory Rate Blood Pressure Blood Pressure [Left] O2 Sat by Pulse 91 97 98 Oximetry O2 Sat by Pulse Oximetry [ Bilateral] 05/14/21 05/14/21 05/14/21 04:54 04:59 05:04 Temperature Pulse Rate 94 H 90 86 Respiratory Rate Blood Pressure Blood Pressure [Left] O2 Sat by Pulse 98 99 98 Oximetry O2 Sat by Pulse Oximetry [ Bilateral] 05/14/21 05/14/21 05/14/21 05:09 05:14 05:19 Temperature Pulse Rate 88 91 H 93 H Respiratory Rate Blood Pressure Blood Pressure [Left] O2 Sat by Pulse 98 99 99 Oximetry O2 Sat by Pulse Oximetry [ Bilateral] 05/14/21 05/14/21 05/14/21 05:24 05:29 05:34 Temperature Pulse Rate 85 91 H 83 Respiratory Rate Blood Pressure Blood Pressure [Left] O2 Sat by Pulse 99 99 99 Oximetry O2 Sat by Pulse Oximetry [ Bilateral] 05/14/21 05/14/21 05/14/21 05:39 05:44 05:49 Temperature Pulse Rate 81 75 75 Respiratory Rate Blood Pressure Blood Pressure [Left] O2 Sat by Pulse 99 97 98 Oximetry O2 Sat by Pulse Oximetry [ Bilateral] 05/14/21 05/14/21 05/14/21 05:54 05:59 06:08 Temperature Pulse Rate 75 74 100 H Respiratory Rate Blood Pressure Blood Pressure [Left] O2 Sat by Pulse 98 98 89 Oximetry O2 Sat by Pulse Oximetry [ Bilateral] 05/14/21 05/14/21 05/14/21 06:09 06:14 06:19 Temperature Pulse Rate 87 76 78 Respiratory Rate Blood Pressure Blood Pressure [Left] O2 Sat by Pulse 99 99 99 Oximetry O2 Sat by Pulse Oximetry [ Bilateral] 05/14/21 05/14/21 05/14/21 06:24 06:29 06:34 Temperature Pulse Rate 72 76 76 Respiratory Rate Blood Pressure Blood Pressure [Left] O2 Sat by Pulse 98 98 98 Oximetry O2 Sat by Pulse Oximetry [ Bilateral] 05/14/21 05/14/21 05/14/21 06:39 06:44 06:49 Temperature Pulse Rate 77 76 80 Respiratory Rate Blood Pressure Blood Pressure [Left] O2 Sat by Pulse 97 97 98 Oximetry O2 Sat by Pulse Oximetry [ Bilateral] 05/14/21 05/14/21 05/14/21 06:54 06:59 07:04 Temperature Pulse Rate 74 73 78 Respiratory Rate Blood Pressure Blood Pressure [Left] O2 Sat by Pulse 98 96 97 Oximetry O2 Sat by Pulse Oximetry [ Bilateral] 05/14/21 05/14/21 05/14/21 07:09 07:14 07:19 Temperature Pulse Rate 75 88 76 Respiratory Rate Blood Pressure Blood Pressure [Left] O2 Sat by Pulse 96 97 98 Oximetry O2 Sat by Pulse Oximetry [ Bilateral] 05/14/21 05/14/21 05/14/21 07:24 07:29 07:34 Temperature Pulse Rate 77 76 85 Respiratory Rate Blood Pressure Blood Pressure [Left] O2 Sat by Pulse 97 97 96 Oximetry O2 Sat by Pulse Oximetry [ Bilateral] 05/14/21 05/14/21 05/14/21 07:37 07:39 07:40 Temperature Pulse Rate 78 75 Respiratory Rate Blood Pressure 102/66 Blood Pressure [Left] O2 Sat by Pulse 98 Oximetry O2 Sat by Pulse 97 Oximetry [ Bilateral] 05/14/21 05/14/21 05/14/21 07:44 07:49 08:10 Temperature 98.3 F Pulse Rate 81 81 87 Respiratory 22 Rate Blood Pressure Blood Pressure 102/66 [Left] O2 Sat by Pulse 98 99 93 Oximetry O2 Sat by Pulse Oximetry [ Bilateral] 05/14/21 05/14/21 05/14/21 08:11 08:16 08:21 Temperature Pulse Rate 87 80 83 Respiratory Rate Blood Pressure Blood Pressure [Left] O2 Sat by Pulse 93 92 99 Oximetry O2 Sat by Pulse Oximetry [ Bilateral] 05/14/21 05/14/21 05/14/21 08:26 08:31 08:36 Temperature Pulse Rate 88 75 73 Respiratory Rate Blood Pressure Blood Pressure [Left] O2 Sat by Pulse 100 99 98 Oximetry O2 Sat by Pulse Oximetry [ Bilateral] 05/14/21 05/14/21 05/14/21 08:41 08:44 08:46 Temperature Pulse Rate 89 85 Respiratory 20 Rate Blood Pressure Blood Pressure [Left] O2 Sat by Pulse 99 100 Oximetry O2 Sat by Pulse Oximetry [ Bilateral] 05/14/21 05/14/21 05/14/21 08:51 08:56 09:01 Temperature Pulse Rate 84 83 82 Respiratory Rate Blood Pressure Blood Pressure [Left] O2 Sat by Pulse 98 97 97 Oximetry O2 Sat by Pulse Oximetry [ Bilateral] 05/14/21 05/14/21 05/14/21 09:06 09:11 09:16 Temperature Pulse Rate 91 H 84 79 Respiratory Rate Blood Pressure Blood Pressure [Left] O2 Sat by Pulse 98 97 98 Oximetry O2 Sat by Pulse Oximetry [ Bilateral] 05/14/21 05/14/21 05/14/21 09:21 09:26 09:31 Temperature Pulse Rate 90 86 85 Respiratory Rate Blood Pressure Blood Pressure [Left] O2 Sat by Pulse 96 99 98 Oximetry O2 Sat by Pulse Oximetry [ Bilateral] 05/14/21 05/14/21 05/14/21 09:36 09:41 09:46 Temperature Pulse Rate 83 86 79 Respiratory Rate Blood Pressure Blood Pressure [Left] O2 Sat by Pulse 98 98 97 Oximetry O2 Sat by Pulse Oximetry [ Bilateral] 05/14/21 05/14/21 05/14/21 09:51 09:56 10:01 Temperature Pulse Rate 76 77 76 Respiratory Rate Blood Pressure Blood Pressure [Left] O2 Sat by Pulse 97 97 97 Oximetry O2 Sat by Pulse Oximetry [ Bilateral] 05/14/21 05/14/21 05/14/21 10:06 10:11 10:16 Temperature Pulse Rate 73 76 76 Respiratory Rate Blood Pressure Blood Pressure [Left] O2 Sat by Pulse 97 98 98 Oximetry O2 Sat by Pulse Oximetry [ Bilateral] 05/14/21 05/14/21 05/14/21 10:21 10:26 10:30 Temperature 98 F Pulse Rate 84 82 Respiratory Rate Blood Pressure Blood Pressure [Left] O2 Sat by Pulse 99 100 Oximetry O2 Sat by Pulse Oximetry [ Bilateral] 05/14/21 05/14/21 05/14/21 10:33 10:37 10:38 Temperature Pulse Rate 90 83 77 Respiratory Rate Blood Pressure Blood Pressure [Left] O2 Sat by Pulse 100 93 98 Oximetry O2 Sat by Pulse Oximetry [ Bilateral] 05/14/21 05/14/21 05/14/21 10:43 10:47 10:48 Temperature Pulse Rate 67 77 87 Respiratory Rate Blood Pressure 140/94 Blood Pressure [Left] O2 Sat by Pulse 95 86 100 Oximetry O2 Sat by Pulse Oximetry [ Bilateral] 05/14/21 05/14/21 05/14/21 10:53 10:58 11:03 Temperature Pulse Rate 75 76 78 Respiratory Rate Blood Pressure Blood Pressure [Left] O2 Sat by Pulse 100 100 100 Oximetry O2 Sat by Pulse Oximetry [ Bilateral] 05/14/21 05/14/21 05/14/21 11:08 11:13 11:18 Temperature Pulse Rate 75 77 78 Respiratory Rate Blood Pressure Blood Pressure [Left] O2 Sat by Pulse 100 100 100 Oximetry O2 Sat by Pulse Oximetry [ Bilateral] 02/19/22 02/19/22 02/19/22 11:23 11:28 11:33 Temperature Pulse Rate 79 78 Respiratory Rate Blood Pressure Blood Pressure [Left] O2 Sat by Pulse 100 100 100 Oximetry O2 Sat by Pulse Oximetry [ Bilateral] 05/14/21 05/14/21 05/14/21 11:38 11:43 11:48 Temperature Pulse Rate 74 74 72 Respiratory Rate Blood Pressure Blood Pressure [Left] O2 Sat by Pulse 100 100 100 Oximetry O2 Sat by Pulse Oximetry [ Bilateral] 05/14/21 05/14/21 05/14/21 11:53 11:58 12:03 Temperature Pulse Rate 78 68 72 Respiratory Rate Blood Pressure Blood Pressure [Left] O2 Sat by Pulse 100 100 100 Oximetry O2 Sat by Pulse Oximetry [ Bilateral] 05/14/21 05/14/21 05/14/21 12:08 12:14 12:19 Temperature Pulse Rate 70 75 73 Respiratory Rate Blood Pressure Blood Pressure [Left] O2 Sat by Pulse 100 100 100 Oximetry O2 Sat by Pulse Oximetry [ Bilateral] 05/14/21 05/14/21 05/14/21 12:24 12:30 12:38 Temperature Pulse Rate 71 26 L 70 Respiratory Rate Blood Pressure Blood Pressure [Left] O2 Sat by Pulse 100 0 L 100 Oximetry O2 Sat by Pulse Oximetry [ Bilateral] 05/14/21 05/14/21 05/14/21 12:55 12:56 13:01 Temperature Pulse Rate 41 L 71 69 Respiratory Rate Blood Pressure Blood Pressure [Left] O2 Sat by Pulse 64 L 99 100 Oximetry O2 Sat by Pulse Oximetry [ Bilateral] 05/14/21 13:06 Temperature Pulse Rate 71 Respiratory Rate Blood Pressure Blood Pressure [Left] O2 Sat by Pulse 100 Oximetry O2 Sat by Pulse Oximetry [ Bilateral] - Exam Breasts: deferred Cardiovascular: Regular rate, Normal S1, Normal S2 Lungs: Clear to auscultation, Normal air movement Abdomen: Present: normal appearance, soft. Absent: distention, tenderness Uterus: Present: normal FHR: auscultation normal Cervical Dilatation: 2 Cervical Effacement Percentage: 60 station: -2 Uterine Contraction Pattern: Irregular - Labs Labs: Abnormal Labs 05/10/21 05/11/21 Unknown 18:16 WBC 19.1 H Lymph % (Auto) 8.9 L Lymph # (Auto) 1.0 L Seg Neutrophils % 82.8 H Seg Neutrophils # 9.1 H
[2021-05-14] MEDS ORDERED: D5W/LACTATED RINGERS 1,000 ML IV SCH (16:00)
[2021-05-15] MEDS: AMPICILLIN/NS 1 GM/50 ML 1 GM/50 ML BAG IV SCH ×3 (02:45→10:10)
[2021-05-15] MEDS: fentaNYL 100 MCG/2 ML INJ IV PRN (02:51)
[2021-05-15] MEDS: LACTATED RINGERS 1,000 ML IV SCH ×4 (04:02→13:56)
[2021-05-15] MEDS ORDERED: ePHEDrine SULFATE 50 MG/1 ML INJ ONE (06:33)
[2021-05-15] MEDS ORDERED: NALOXONE 2 MG/2 ML INJ IV PRN (06:36)
[2021-05-15] MEDS ORDERED: ePHEDrine SULFATE 50 MG/1 ML INJ IV PRN (06:36)
--- NOTE | 2021-05-15 06:36 | Anesthesia Consultation ---
Anesthesia Consult and Med Hx Date of service: 05/15/21 - Airway Anesthetic Teeth Evaluation: Good ROM Head & Neck: Adequate Mental/Hyoid Distance: Adequate Mallampati Class: Class II Intubation Access Assessment: Probably Good - Pulmonary Exam CTA: Yes - Cardiac Exam Cardiac Exam: RRR - Pre-Operative Health Status ASA Pre-Surgery Classification: ASA2 Proposed Anesthetic Plan: Epidural - Pulmonary Hx Asthma: No - Cardiovascular System Hx Hypertension: No - Central Nervous System Hx Seizures: No Hx Psychiatric Problems: No - Endocrine Hx Renal Disease: No Hx Hypothyroidism: No Hx Hyperthyroidism: No - Hematic Hx Anemia: No Hx Sickle Cell Disease: No - Other Systems Hx Alcohol Use: No
[2021-05-15] MEDS ORDERED: fentaNYL-BUPIV 2 MCG/ML-0.125% 200 MCG/100 ML BAG EPIDURAL SCH (07:00)
[2021-05-15] MEDS: PRENATAL VIT27-FE FUMARATE-FOLIC ACID VIT TAB PO SCH (10:10)
--- NOTE | 2021-05-15 10:41 | Procedure Note ---
OB Delivery Note - Delivery Date of Delivery: 05/15/21 Surgeon: TATIANA OH (Standing in for Dr. Crane who was en route to hospital) Estimated blood loss: other (150 cc) - Vaginal Delivery presentation: vertex Delivery position: OA Intrapartum events: none Delivery induction: oxytocin Delivery monitor: external FHT, external uterine Route of delivery: Delivery placenta: spontaneous Delivery cord: 3 umbilical vessels Episiotomy: none Delivery laceration: none Anesthesia: epidural Delivery comments: Stood in for delivery for Dr. Crane who was en route to hospital for delivery. Spontaneous vaginal delivery at 10:23 of liveborn male infant weighing 5 lb. 3 oz. over intact perineum with apgars of 8/9. Tight nuchal cord times 1, manually reduced. of baby was atraumatic; baby placed skin to skin with mom immediately after delivery. Baby suctioned with bulb syringe and dried with warm towels. Spontaneous cry and respirations. Delayed cord clamping. 3 vessel cord double clamped and cut and baby taken to radiant warmer for evaluation. Cord blood obtained. pitocin started and spontaneous delivery of intact placenta and membranes at 10:30. EBL 150 cc. Fundus firm and midline at 1 FB below umbilicus. No lacerations noted. Vaginal sweep negative. Sponge count correct. Placenta to pathology. Mother and baby stable in birthing room.
[2021-05-15] MEDS ORDERED: MAGNESIUM SULFATE 4 GM/100 ML BAG IV ONE (14:00)
[2021-05-15] MEDS: MAGNESIUM SULFATE 40GM/1000ML 40 GM/1,000 ML BAG IV SCH (14:33)
[2021-05-16] MEDS: LACTATED RINGERS 1,000 ML IV SCH (02:05)
--- NOTE | 2021-05-16 08:01 | Progress Note ---
Assessment and Plan - Patient Problems (1) Preeclampsia in period Current Visit: Yes Status: Acute Plan to address problem: Patient will complete magnesium sulfate therapy this afternoon Routine care (2) Oligohydramnios in third trimester Current Visit: Yes Status: Acute Qualifiers: Fetus number: single or unspecified fetus Qualified Code(s): O41.03X0 - Oligohydramnios, third trimester, not applicable or unspecified Subjective - Subjective Date of service: 05/16/21 Principal diagnosis: IOL; oligo, SGA fetus Interval history: The patient is without any significant complaints today. The patient was initiated on magnesium therapy yesterday secondary to elevated blood pressures. She is currently normotensive. Her pain is well controlled. Patient reports: appetite normal, voiding normally, pain well controlled [place]: doing well Objective - Vital Signs Latest vital signs: Vital Signs Temp Pulse Resp BP Pulse Ox Pulse Ox 05/16/21 06:17 102 H 118/62 05/16/21 05:17 93 H 116/65 05/16/21 04:50 98.0 F 99 H 16 118/74 99 05/16/21 04:17 108 H 143/78 05/16/21 03:17 105 H 115/64 05/16/21 02:17 97 H 109/57 05/16/21 01:17 109 H 124/73 05/16/21 00:17 106 H 131/82 05/15/21 23:17 107 H 122/74 05/15/21 22:17 108 H 123/76 05/15/21 21:17 120 H 118/63 05/15/21 20:45 98.4 F 104 H 16 100 05/15/21 20:44 125 H 99 05/15/21 20:30 100 05/15/21 20:17 104 H 123/72 05/15/21 19:17 102 H 108/60 05/15/21 18:17 100 H 110/51 05/15/21 17:17 102 H 114/58 05/15/21 16:17 100 H 117/64 05/15/21 15:17 105 H 119/64 05/15/21 14:53 114 H 119/66 05/15/21 14:13 89 139/86 05/15/21 12:20 84 155/100 05/15/21 12:06 83 151/98 05/15/21 11:54 85 139/88 02/20/22 11:50 80 137/87 05/15/21 11:48 62 79 L 05/15/21 11:44 94 05/15/21 11:42 79 55 L 05/15/21 11:38 115 H 75 L 05/15/21 11:37 56 L 99 05/15/21 11:35 79 140/85 05/15/21 11:33 25 L 85 05/15/21 11:32 123 H 39 L 05/15/21 11:28 67 88 05/15/21 11:26 54 L 05/15/21 11:21 73 93 05/15/21 11:20 78 135/65 05/15/21 11:19 88 73 L 05/15/21 11:14 55 L 57 L 05/15/21 11:11 86 149/77 05/15/21 11:10 84 138/77 70 L 05/15/21 11:09 119 H 94 05/15/21 11:05 89 134/82 85 05/15/21 11:02 92 H 63 L 05/15/21 11:01 87 130/87 05/15/21 10:57 91 H 77 L 05/15/21 10:53 93 H 91 05/15/21 10:52 90 95 05/15/21 10:48 89 138/73 05/15/21 10:47 91 H 95 05/15/21 10:43 89 141/83 05/15/21 10:42 91 H 94 05/15/21 10:41 86 132/74 05/15/21 10:40 88 99 05/15/21 10:39 83 130/76 05/15/21 10:37 86 127/74 05/15/21 10:35 90 99 05/15/21 10:34 90 94 05/15/21 10:33 92 H 100/56 05/15/21 10:32 90 127/58 05/15/21 10:30 86 0 L 05/15/21 10:29 106 H 108/60 05/15/21 10:27 93 H 103/61 94 05/15/21 10:26 103 H 124/79 05/15/21 10:25 71 100 05/15/21 10:22 103 H 93 05/15/21 10:21 96 H 106/55 05/15/21 10:20 92 H 100 05/15/21 10:16 110 H 34 L 05/15/21 10:15 46 L 113/73 94 05/15/21 10:13 92 H 115/79 05/15/21 10:11 89 114/79 05/15/21 10:10 89 100 05/15/21 10:09 87 118/79 05/15/21 10:07 86 128/64 05/15/21 10:05 70 122/68 99 05/15/21 10:04 78 89 05/15/21 10:03 76 128/67 05/15/21 10:01 72 126/69 05/15/21 10:00 82 99 05/15/21 09:59 74 127/85 05/15/21 09:57 85 124/84 05/15/21 09:55 79 124/80 99 05/15/21 09:53 78 135/84 05/15/21 09:51 75 128/85 05/15/21 09:50 79 98 05/15/21 09:49 86 126/81 05/15/21 09:47 72 129/80 05/15/21 09:45 78 132/80 100 05/15/21 09:43 73 136/77 05/15/21 09:41 78 127/75 05/15/21 09:40 81 99 05/15/21 09:39 79 143/79 05/15/21 09:37 75 145/76 05/15/21 09:35 78 152/82 100 05/15/21 09:33 85 142/77 05/15/21 09:31 81 141/80 05/15/21 09:30 77 100 05/15/21 09:29 84 139/88 05/15/21 09:27 77 153/90 05/15/21 09:25 82 134/83 99 05/15/21 09:23 98.5 F 65 130/75 05/15/21 09:21 74 131/79 05/15/21 09:20 78 99 05/15/21 09:19 82 137/80 05/15/21 09:17 83 139/83 05/15/21 09:15 80 146/80 100 100 05/15/21 09:13 72 141/75 05/15/21 09:11 87 134/79 05/15/21 09:10 77 97 05/15/21 09:09 81 142/76 02 09:07 72 139/73 02 09:05 82 137/83 98 05/15/21 09:03 84 134/80 22 09:01 83 141/80 05/15/21 09:00 86 99 05/15/21 08:59 81 149/85 05/15/21 08:57 85 143/87 05/15/21 08:55 74 139/82 100 22 08:53 80 144/81 05/15/21 08:51 81 152/83 05/15/21 08:50 79 100 05/15/21 08:49 79 133/67 05/15/21 08:47 63 87 05/15/21 08:45 76 149/81 100 05/15/21 08:43 85 142/84 05/15/21 08:41 81 146/87 05/15/21 08:40 85 100 05/15/21 08:39 84 156/91 02 08:37 75 156/88 05/15/21 08:35 73 146/84 100 0222 08:33 74 150/86 05/15/21 08:31 74 147/83 05/15/21 08:30 83 99 05/15/21 08:29 69 153/88 22 08:27 78 149/86 0222 08:25 70 145/82 100 05/15/21 08:23 81 148/87 22 08:21 68 142/90 22 08:20 71 100 0222 08:19 75 140/86 0222 08:17 78 145/90 02/22 08:15 69 136/88 99 0222 08:13 65 142/90 22 08:11 81 141/88 05/15/21 08:10 69 100 0222 08:09 75 135/80 22 08:07 72 143/82 2022 08:05 70 129/87 100 22 08:03 80 139/87 22 08:01 62 135/87 Intake and Output 05/15/21 05/16/21 05/16/21 22:59 06:59 14:59 Output Total 4200 1600 950 Balance -4200 -1600 -950 Output: Urine 4200 1600 950 Indwelling Catheter 4200 Void 1600 950 Other: Total, Output Amount 900 800 950 # Voids Void 1 1 - Labs Labs: Abnormal lab results 05/15/21 05/16/21 Range/Units 20:45 03:10 Magnesium 4.20 H 4.60 H (1.7-2.3) mg/dL
--- NOTE | 2021-05-16 08:01 | Event Note ---
Date: 05/15/21 Received call from nursing staff that patient's bp was spiking to 150s/90s. Pt subsequently began to complain of a headache. Nursing advise to return to L&D and begin magnesium therapy protocol.
[2021-05-16] MEDS: PRENATAL VIT27-FE FUMARATE-FOLIC ACID VIT TAB PO SCH (10:28)
[2021-05-16] MEDS: MAGNESIUM SULFATE 40GM/1000ML 40 GM/1,000 ML BAG IV SCH (10:46)
[2021-05-16] MEDS ORDERED: LANOLIN/ZINC/DIMETHICONE (LANSINOH) 7 GM TP PRN (15:55)
[2021-05-16] MEDS ORDERED: PROMETHAZINE 25 MG TAB PO PRN (15:55)
[2021-05-16] MEDS ORDERED: ACETAMINOPHEN 325 MG TAB PO PRN (15:55)
[2021-05-16] MEDS ORDERED: PROMETHAZINE 25 MG RECT SUPP PR PRN (15:55)
[2021-05-16] MEDS ORDERED: ONDANSETRON 4 MG/2 ML INJ IV PRN (15:55)
[2021-05-16] MEDS ORDERED: WITCH HAZEL/ GLYCERIN PAD TP PRN (15:55)
[2021-05-16] MEDS ORDERED: diphenhydrAMINE 25 MG CAP PO PRN (15:55)
[2021-05-16] MEDS ORDERED: HYDROcodone/ACETAMINOPHEN 5-325 MG TAB PO PRN (15:55)
[2021-05-16] MEDS ORDERED: MAGNESIUM HYDROXIDE (MOM) ORAL LIQD UDC PO PRN (15:55)
[2021-05-16 17:50] LABS: Hematocrit 34.3 % (30.3-42.9)
[2021-05-16] MEDS: IBUPROFEN 800 MG TAB PO SCH ×2 (18:31→21:49)
[2021-05-16] MEDS: DOCUSATE SODIUM 100 MG CAP PO SCH (21:49)
[2021-05-17] MEDS: IBUPROFEN 800 MG TAB PO SCH ×3 (05:36→21:35)
--- NOTE | 2021-05-17 08:12 | Progress Note ---
Assessment and Plan A: PPD#2 s/p at 36wks Normotensive, s/p magnesium sulfate for pre-eclampsia. P: Continue with routine care with discharge anticipated this morning. Subjective - Subjective Date of service: 05/17/21 Principal diagnosis: IOL; oligo, SGA fetus Interval history: PPD#2 s/p at 36wks. Patient is feeling well and has no complaints. She reports minimal pain, decreasing lochia and reports no issues with ambulation or voiding. She is excited to go home. Patient reports: appetite normal, voiding normally, pain well controlled, ambulating normally : doing well Objective - Vital Signs Latest vital signs: Vital Signs Temp Pulse Resp BP BP Pulse Ox Pulse Ox 05/17/21 06:36 18 05/17/21 05:36 18 05/17/21 01:30 98.0 F 94 H 20 113/67 95 05/16/21 22:49 18 05/16/21 21:49 18 05/16/21 21:11 85 20 115/78 05/16/21 21:07 100 05/16/21 18:48 81 110/70 05/16/21 15:25 98.3 F 88 20 126/92 99 100 05/16/21 12:34 87 125/89 05/16/21 12:32 106 H 93 05/16/21 12:29 101 H 77 L 05/16/21 12:26 112 H 90 05/16/21 12:24 98.2 F 89 18 125/89 100 05/16/21 12:19 93 H 98 05/16/21 12:14 95 H 100 05/16/21 12:09 89 100 05/16/21 12:04 92 H 100 05/16/21 11:59 94 H 100 05/16/21 11:58 92 H 111/77 05/16/21 11:54 91 H 99 05/16/21 11:49 95 H 100 05/16/21 11:44 99 H 100 05/16/21 11:39 96 H 100 05/16/21 11:34 90 117/67 100 05/16/21 11:26 98.7 F 91 H 20 117/67 100 05/16/21 10:40 81 L 05/16/21 10:31 67 L 05/16/21 10:20 73 L 05/16/21 10:05 68 95 02/21/22 10:03 87 05/16/21 10:00 100 H 17 120/80 99 05/16/21 09:59 97 H 120/80 05/16/21 09:57 97 H 99 05/16/21 09:52 101 H 98 05/16/21 09:47 102 H 100 05/16/21 09:42 103 H 99 05/16/21 09:37 68 78 L 05/16/21 09:36 70 L 05/16/21 09:32 64 70 L 05/16/21 09:31 76 L 05/16/21 09:25 50 L 77 L 05/16/21 09:20 86 77 L 05/16/21 09:19 68 85 05/16/21 09:15 107 H 99 05/16/21 09:10 102 H 99 05/16/21 09:05 93 H 100 05/16/21 09:00 95 H 100 05/16/21 08:55 101 H 100 05/16/21 08:50 95 H 99 05/16/21 08:45 91 H 100 05/16/21 08:40 98 H 98 05/16/21 08:35 96 H 100 05/16/21 08:30 98 H 100 05/16/21 08:25 90 99 05/16/21 08:20 98 H 99 05/16/21 08:17 100 H 117/82 05/16/21 08:15 98 H 99 05/16/21 08:12 98.7 F 109 H 18 112/72 100 Intake and Output 05/16/21 05/17/21 05/17/21 23:59 07:59 15:59 Intake Total 240 240 Balance 240 240 Intake: Oral 240 240 Other: Total, Intake Amount 240 120 # Voids Void 1 1 - Labs Labs: Abnormal lab results 05/16/21 Range/Units 12:06 Magnesium 4.50 H (1.7-2.3) mg/dL
--- NOTE | 2021-05-17 08:29 | Discharge Summary ---
Providers - Providers Date of Admission: 05/10/21 10:14 Date of discharge: 05/17/21 Attending physician: TONY SMITH Primary care physician: TONY SMITH Hospitalization Reason for admission: IUP - , induction of labor (Oligo and SGA) Delivery: Episiotomy: none Laceration: none Incision: normal Other procedures: none complications: other (Pre-eclampsia) [place] baby: male Hospital course: Patient was sent to L&D from perinatology for oligo and SGA fetus. She went on to have a of viable . Her course was complicated by pre-eclampsia, she is now s/p Mag Sulfate therapy and currently normotensive. Condition at discharge: Good Disposition: 01 HOME / SELF CARE / HOMELESS Plan - Discharge Medications Prescriptions: Ibuprofen [Motrin 600 MG tab] 600 mg PO Q8H PRN #30 tablet PRN Reason: Pain - Provider Discharge Summary Activity: routine, no sex for 6 weeks, no heavy lifting 4 weeks, no strenuous exercise Diet: routine Instructions: routine Additional instructions: [] Smoking cessation referral if applicable(refer to patient education folder for contact #) [] Refer to [facility] Book[facility] Call your doctor immediately for: * Fever > 100.5 * Heavy vaginal bleeding ( >1 pad per hour) * Severe persistent headache * Shortness of breath * Reddened, hot, painful area to leg or breast * Drainage or odor from incision. * Keep incision clean and dry at all times and follow doctor's instructions regarding bathing/showering Call the office to schedule newborns circumcision. Return to [facility] on Saturday 05/20 for a blood-pressure check. - Follow up plan Follow up: [facility] [Advanced Practice Nurse] - 14 Days
--- NOTE | 2021-05-17 08:29 | Post Anesthesia Evaluation ---
- Post Anesthesia Evaluation Patient Participated: Yes Airway Patent: Yes Stable Respiratory Function: Yes Nausea/Vomiting: No Temp > 96.8F: Yes Pain Manageable: Yes Adequeate Hydration: Yes Anesthesia Complications: No Block Receding Appropriately: Yes Patient on Ventilator: No
[2021-05-17] MEDS: DOCUSATE SODIUM 100 MG CAP PO SCH ×2 (10:39→21:35)
[2021-05-18] MEDS: IBUPROFEN 800 MG TAB PO SCH (04:59)
[2021-05-18 11:14] VITALS: BP 123/85
== END 2021-05-18 12:20 | disposition home or self-care (01) | DRG 774 ==
LOC: TRG 10:01 → APU 10:03 → LD 10:08 → TRG 10:09 → LD 10:14 → OB 05-15 12:45 → LD 05-15 13:31 → OB 05-16 15:17
PROVIDERS: ADMIT Obstetrics & Gynecology; ATTEND Obstetrics & Gynecology
PROC: 10E0XZZ Delivery of Products of Conception, External Approach (ICD-10-PCS; principal; 2021-05-15)
PROC: 3E033VJ Introduction of Other Hormone into Peripheral Vein, Percutaneous Approach (ICD-10-PCS; 2021-05-15)
PROC: 3E0R3BZ Introduction of Anesthetic Agent into Spinal Canal, Percutaneous Approach (ICD-10-PCS; 2021-05-15)
PROC: 00HU33Z Insertion of Infusion Device into Spinal Canal, Percutaneous Approach (ICD-10-PCS; 2021-05-15)
DX: O41.03X0 Oligohydramnios, third trimester, not applicable or unspecified (principal); O14.95 Unspecified pre-eclampsia, complicating the puerperium; Z37.0 Single live birth; O60.14X0 Preterm labor third trimester with preterm delivery third trimester, not applicable or unspecified; O99.62 Diseases of the digestive system complicating childbirth; K21.9 Gastro-esophageal reflux disease without esophagitis; O99.814 Abnormal glucose complicating childbirth; O69.1XX0 Labor and delivery complicated by cord around neck, with compression, not applicable or unspecified; O99.02 Anemia complicating childbirth; D56.3 Thalassemia minor; Z20.822 Contact with and (suspected) exposure to COVID-19; Z3A.36 36 weeks gestation of pregnancy; Z91.018 Allergy to other foods; Z82.49 Family history of ischemic heart disease and other diseases of the circulatory system
CPT/HCPCS: 36415; 76815; 76819; 83735; 84112; 85014; 85018; 85025; 85027; 86850; 86900; 86901; 87116; 88307; 99211; G0378; J3490; J7060; G0463; J0290; J0595; J0702; J2405; J2590; J3010; J3475; J7120; J7121; U0003